=== PATIENT | male | born 1985 | race Caucasian/White ===

== ENCOUNTER 2024-10-17 17:38 | Emergency (ER) | payer BC, SELFPAY ==
--- NOTE | 2024-10-17 17:46 | ED_ITS ---
<Statement entered by Katty Bal DO - 10/17/24 22:10> I was consulted by the DON, and we discussed the complexity of the problems being addressed. I approved the treatment and management plan for this patient's care in the emergency department, thus performing a substantive portion of the medical decision making. Katty Bal DO Discharge Plan Disposition Patient Disposition: Home, Self-Care Condition: Good Prescriptions Prescriptions: New prednisone 50 mg tablet 50 mg PO DAILY 5 Days Qty: 5 0RF albuterol sulfate 90 mcg/actuation HFA aerosol inhaler 1 inh inhalation Q4H PRN (Reason: shortness of breath or wheezing) Qty: 8 0RF btznpydvaqfrjxv-hhrnaiijl-LV [Bromfed DM] 2-30-10 mg/5 mL syrup 5 ml PO Q4H PRN (Reason: sinus symptoms) Qty: 118 0RF Referrals Follow up/Referrals: Provider,Referral, [Primary Care Provider] - See instructions Activity Restrictions/Add. Instructions Additional Instructions/Restrictions: You have been diagnosed with a viral upper respiratory tract infection. Your symptoms are likely related to the lingering effects of that thus I have sent medication to your pharmacy to help you. Continue taking Tylenol and Motrin. Follow-up with your PCP next week for recheck. Return to ER for any worsening signs or symptoms as needed. Clinical Impressions Clinical Impression: Viral URI with cough Instructions Patient Instructions: DI for Viral Upper Respiratory Infection -- Adult Print Language Print Language: [place]ar[place] Discharge ED Provider: Katty Bal General Adult HPI General Chief complaint: Upper Respiratory Infection Stated complaint: SOA, cough alina Time Seen by Provider: 10/17/24 17:44 History of Present Illness HPI narrative: Patient presents for evaluation of a week of cough. Patient states that he has had a cough for over 7 days. He reports that he initially had high fever however that was gone after day 3 but has had persistent nonproductive pervasive cough. He denies shortness of breath increased work of breathing fever chills hemoptysis hematochezia melena nausea vomiting diarrhea. Related Data Previous Rx's ?Medication ?Instructions ?Recorded albuterol sulfate 90 mcg/actuation 1 inh inhalation Q4H PRN shortness 10/17/24 aerosol inhaler of breath or wheezing #8 grams xqladckfgyjtngw-dkbyrcqzlsliale-DX 5 ml PO Q4H PRN sinus symptoms 12/25/24 2 mg-30 mg-10 mg/5 mL oral syrup #118 mL (Bromfed DM) prednisone 50 mg tablet 50 mg PO DAILY 5 days #5 tabs 10/17/24 Allergies Allergy/AdvReac Type Severity Reaction Status Date / Time No Known Allergies Allergy Verified 10/17/24 18:38 [facility] Disclaimer: The information contained in this section may have been updated after the patient was seen, as this information can be updated by other users. Social History Smoking Status: Former smoker alcohol intake: never current occupational status: employed Travel in the last 8 weeks: None ROS Obtained: Yes Systems reviewed as appropriate & no additional complaints except as documented Physical Exam General General appearance: alert and in no apparent distress Respiratory Respiratory exam: Present normal lung sounds bilaterally Cardiovascular Cardiovascular exam: Present regular rate Neurological Exam Neurological exam: Present alert and oriented X3 Medical Decision Making Medical Records Medical records reviewed: Yes I reviewed the patient's medical records. Screening: Per USPSTF and CDC recommendations, given the prevalence of disease in our region, it is our hospital?s policy to screen for HIV and viral Hepatitis for all patients aged 18 and over and those with ongoing risk factors. Sean Inquiry Pt receiving controlled substance: No Vital Signs: 10/17/24 17:47 10/17/24 17:48 10/17/24 19:10 Temperature 98.2 F 98.0 F Temperature Source Oral Pulse Rate 93 H 90 Pulse Rate [Right Radial] 95 H Respiratory Rate 20 16 Blood Pressure 138/101 H 144/96 H Blood Pressure [Right Arm] 138/101 H Blood Pressure Mean [Right Arm] 113 02 Sat by Pulse Oximetry 95 95 Oxygen Delivery Method Room Air Lab Data Lab results reviewed: Yes I reviewed the patient's lab results. Lab Results 10/17/24 17:45: SARS-CoV-2 (PCR) Not detected, Influenza A Untype (PCR) Not detected, Influenza Type B (PCR) Not detected 10/17/24 17:52: VBG pH 7.41, VBG pCO2 40.6, VBG pO2 34.5, VBG HCO3 25.0, VBG Total CO2 26.2, VBG O2 Saturation 67.6, VBG Base Excess 0.3, VBG Lactic Acid 1.2 10/17/24 18:07: WBC 10.8, RBC 4.94, Hgb 15.0, Hct 42.4, MCV 85.8, MCH 30.4, MCHC 35.4, RDW 11.5, Plt Count 305, MPV 9.8, Neut % (Auto) 73.8, Lymph % (Auto) 15.1, Boyd % (Auto) 8.5, Eos % (Auto) 1.6, Baso % (Auto) 0.6, Neut # (Auto) 8.0 H, Lymph # (Auto) 1.6, Boyd # (Auto) 0.9, Eos # (Auto) 0.2, Baso # (Auto) 0.1, Sodium 136, Potassium 3.8, Chloride 106, Carbon Dioxide 29, Anion Gap 4.8 L, BUN 17, Creatinine 1.10, Estimated Creat Clear 93, Estimated GFR 74, Est GFR ( Amer) 89, Glucose 104 H, Calcium 9.6, Total Bilirubin 0.5, AST 34, ALT 37, Alkaline Phosphatase 63, NT-Pro-B Natriuret Pep 29.7, Total Protein 7.6, Albumin 4.5, Globulin 3.1, Albumin/Globulin Ratio 1.5 10/17/24 18:07 10/17/24 18:07 Orders (Tests/Meds): ED MEDICATIONS Discontinued Medications Generic Name Dose Route Start Last Admin Trade Name Crow PRN Reason Stop Dose Admin Acetaminophen 1,000 mg 10/17/24 17:51 10/17/24 18:13 Acetaminophen 1,000mg/100ml Vial IV 10/17/24 17:52 1,000 mg ONCE ONE Administration Albuterol/Ipratropium 3 ml 10/17/24 17:51 10/17/24 18:13 Ipratropium/Albuterol 3 Ml [facility] 10/17/24 17:52 3 ml ONCE ONE Administration Dexamethasone Sodium Phosphate 10 mg 10/17/24 17:51 10/17/24 18:12 Dexamethasone 4mg/Ml 5ml Mdv IV 10/17/24 17:52 10 mg ONCE ONE Administration Ketorolac Tromethamine 15 mg 10/17/24 17:51 10/17/24 18:13 Ketorolac 30mg/Ml Vial IV 10/17/24 17:52 15 mg ONCE ONE Administration ORDERS Category Date Time Status Chest XR 2 view (NOT portable) [XR chest 2V] Stat Exams 10/17/24 17:51 Completed BNP [NT Pro Brain Natriuretic Pep.] Stat Lab 10/17/24 18:07 Completed CBC w/Auto Diff [Complete Blood Count Auto Diff] Stat Lab 10/17/24 18:07 Completed CMP [Comprehensive Metabolic Panel] Stat Lab 10/17/24 18:07 Completed Rapid PCR Covid and Flu A/B Stat Lab 10/17/24 17:45 Completed VBG [Venous Blood Gas] Stat RT 10/17/24 17:52 Completed Medical Decision Narrative: In summary patient is a 39-year-old male who presents to the emergency department for evaluation of 1 week of cough. Patient is hemodynamically stable upon arrival, afebrile. Physical exam is remarkable for clear breath sounds with no adventitious sounds no increased work of breathing, satting at 95% on room air with normal sinus rhythm on the bedside monitor. Posterior pharynx is normal with no erythema or exudate.. Differential diagnosis includes viral or bacterial upper respiratory tract infection versus bronchitis versus asthma etc. Initial workup will be conducted with hematologic labs plain film chest x-ray COVID and flu swabs.. Initial interventions include Tylenol Toradol Decadron DuoNeb. Initial workup reviewed by me shows that his respiratory swabs are negative his hematologic labs are nonactionable and my informal trepidation of his plain film chest x-ray shows no acute processes prior to radiology read.. Upon repeat evaluation patient reported significant improvement after ministration of Tylenol Toradol Decadron and DuoNeb. Given this patient is appropriate for discharge with prescription for Bromfed and albuterol metered- dose inhaler and burst of steroids. Patient to follow-up with PCP in 48 hours for recheck with strict return precautions. Critical Care Critical Care Time Critical Care Time: No
[2024-10-17 17:47] VITALS: BP 138/101; PULSE 93; O2SAT 95
[2024-10-17 17:48] VITALS: BP 138/101; PULSE 95; RESP 20; TEMP 36.8; O2SAT 95; BMI 22.2
--- NOTE | 2024-10-17 17:51 | XR_ITS ---
PROCEDURE INFORMATION: Exam: XR Chest Exam date and time: 10/17/2024 5:49 PM Age: 39 years old Clinical indication: Cough; Additional info: Cough congestion fever for a week TECHNIQUE: Imaging protocol: Radiologic exam of the chest. Views: 2 views. COMPARISON: No relevant prior studies available. FINDINGS: Lungs: Unremarkable. No consolidation. Pleural spaces: Unremarkable. No pleural effusion. No pneumothorax. Heart/Mediastinum: Unremarkable. No cardiomegaly. Bones/joints: Unremarkable. IMPRESSION: No acute findings.
[2024-10-17 17:54] LABS: Coronavirus 19, PCR Not Detected (NotDetected); Influenza A, PCR Not Detected (NotDetected); Influenza B, PCR Not Detected (NotDetected)
[2024-10-17] MEDS: DEXAMETHASONE 4MG/ML 5ML MDV 10 MG IV (18:12)
[2024-10-17] MEDS: KETOROLAC 30MG/ML VIAL 15 MG IV (18:13)
[2024-10-17] MEDS: ACETAMINOPHEN 1,000MG/100ML VIAL 1000 MG IV (18:13)
[2024-10-17] MEDS: IPRATROPIUM/ALBUTEROL 3 ML NEB IH (18:13)
[2024-10-17 18:16] LABS: Basophils # 0.1 K/mm3 (0-0.2); Basophils % 0.6 % (0.1-2.0); Eosinophils # 0.2 K/mm3 (0.0-0.4); Eosinophils % 1.6 % (0.1-12.0); Hematocrit 42.4 % (42.0-52.0); Lymphocytes # 1.6 K/mm3 (0.7-4.5); Lymphocytes % 15.1 % (10-50); Mean Corpuscular HGB Conc 35.4 g/dL (31.8-35.4); Mean Corpuscular Hemoglobin 30.4 pg (27.0-31.2); Mean Corpuscular Volume 85.8 fl (80-94); Mean Platelet Volume 9.8 fl (7.4-10.4); Monocytes # 0.9 K/mm3 (0.1-1.0); Monocytes % 8.5 % (1.7-9.3); Neutrophils % 73.8 % (37.0-80.0); Platelet Count 305 K/mm3 (142-424); Red Blood Count 4.94 M/mm3 (4.60-6.20); Red Cell Distribution Width 11.5 % (11.5-17.5); White Blood Count 10.8 K/mm3 (4.8-10.8)
[2024-10-17 18:18] LABS: Lactate Venous 1.2 mmol/L (0.4-2.0); VBG Base Excess 0.3 mmol/L (-2.4-2.3); VBG Oxygen Saturation 67.6 % (50-70); VBG PCO2 40.6 mmol/L (35-51); VBG PH 7.41 mmol/L (7.31-7.41); VBG PO2 34.5 mmol/L (28-40); VBG Total CO2 26.2 mmol/L (23-27)
[2024-10-17 18:19] LABS: Albumin Level 4.5 g/dl (3.5-5.0); Chloride 106 mmol/L (98-107); Potassium 3.8 mmoL/L (3.5-5.1); Sodium 136 mmol/L (136-145)
[2024-10-17 18:22] LABS: Alanine Aminotransferase 37 U/L (12-78); Albumin/Globulin Ratio 1.5 (1.1-1.8); Alkaline Phosphatase 63 U/L (38-126); Anion Gap 4.8 mEq/L (5-15); Aspartate Amino Transferase 34 U/L (17-59); Bilirubin,Total 0.5 mg/dl (0.2-1.3); Blood Urea Nitrogen 17 mg/dl (9-20); Carbon Dioxide 29 mmol/L (22.0-30.0); Creatinine Clearance Estimated 93 mL/min (50-200); Estimated Glomerular Filt Rate 74 ml/min (>60); GFR (African American) 89 ML/MIN (>60); Globulin 3.1 g/dL (1.3-3.2); Total Protein,Serum 7.6 g/dl (6.3-8.2)
[2024-10-17 18:23] LABS: Calcium 9.6 mg/dl (8.4-10.2); Glucose 104 mg/dl (74-100)
[2024-10-17 18:32] LABS: NT Pro Brain Natriuretic Pep. 29.7 pg/mL (0-125)
[2024-10-17 19:10] VITALS: BP 144/96; PULSE 90; RESP 16; TEMP 36.7
== END 2024-10-17 19:11 | disposition home or self-care (01) ==
PROVIDERS: Physician Assistant; Emergency Provider Emergency Medicine
DX: J06.9 Acute upper respiratory infection, unspecified (principal); R05.9 Cough, unspecified; R50.9 Fever, unspecified
CPT/HCPCS: 71046; 80053; 82803; 83880; 85025; 87636; 96374; 96375; 99283; J0131; J1100; J1885; J7620